=== PATIENT | female | born 1985 | race Caucasian/White ===

== ENCOUNTER 2020-05-08 15:34 | Emergency (ER) | payer BC ==
[~2020-05-08] VITALS: Ht 170.2 cm; Wt 62.7 kg
[2020-05-08 15:36] VITALS: TEMP 98.7
[2020-05-08 16:05] LABS: BASO % 0.3 % (0.0-2.0); EOS % 0.3 % (0-4.0); GRAN # 12.7 (1.4-6.5); GRAN % 83.4 % (42.2-75.2); HEMATOCRIT 38.7 % (37.0-47.0); HEMOGLOBIN 13.3 g/dl (12.5-16.0); LYMPH # 1.4 (1.2-3.4); MEAN CELL VOLUME 91 fl (80.0-100.0); MEAN CORPUSCULAR HEMOGLOBIN 31 pg (27.0-31.0); MEAN CORPUSCULAR HGB CONC 34 g/dl (33.0-37.0); MEAN PLATELET VOLUME 9.4 fl (7.4-10.4); MONO % 6.7 % (1.7-9.3); PLATELET COUNT 325 K/mm3 (130-400); RED BLOOD COUNT 4.27 M/mm3 (4.10-5.30); REDCELL DISTRIBUTION WIDTH-CV 11.4 % (11.5-14.5)
[2020-05-08] MEDS ORDERED: SINGULAIR 110 MG/TAB (16:14)
[2020-05-08] MEDS ORDERED: TENEX PO (16:15)
[2020-05-08 16:23] LABS: ALANINE AMINOTRANSFERASE 12 U/L (4-34); ALBUMIN 4.3 gm/dL (3.5-5.0); ALKALINE PHOSPHATASE 66 U/L (50-136); ANION GAP 7 mmol/L (7-16); AST,SGOT 20 U/L (15-37); BILIRUBIN,TOTAL 0.4 mg/dL (0.0-1.0); BLOOD UREA NITROGEN 15 mg/dL (7-17); CALCIUM 9.2 mg/dL (8.4-10.2); CARBON DIOXIDE 25 mmol/L (22-30); CHLORIDE 103 mmol/L (98-107); CREATININE, serum 0.85 (0.52-1.25); GLUCOSE 100 mg/dL (74-106); POTASSIUM 4.1 mmol/L (3.4-5.0); SODIUM 134 mmol/L (137-145); TOTAL PROTEIN 7.6 gm/dL (6.4-8.2)
[2020-05-08 16:27] LABS: C-REACTIVE PROTEIN < 0.5 mg/dL (0.0-0.9)
[2020-05-08 16:39] LABS: COLLECTION METHOD CLEAN CATCH
[2020-05-08 16:44] LABS: PH 5 (5-8); SQUAMOUS EPITHELIAL 0-2 /hpf; URINE APPEARANCE Clear; URINE BACTERIA Rare /hpf; URINE BILIRUBIN Negative (NEGATIVE); URINE BLOOD 2+ (NEGATIVE); URINE COLOR Yellow; URINE GLUCOSE Negative (NEGATIVE); URINE KETONE Negative (NEGATIVE); URINE LEUKOCYTE ESTERASE Negative (NEGATIVE); URINE NITRATE Negative (NEGATIVE); URINE PROTEIN(semi-quant) Negative (NEGATIVE); URINE RBC 20-50 /hpf; URINE UROBILINOGEN Negative (NEGATIVE)
[2020-05-08] MEDS ORDERED: ZOFRAN ODT4 MG PO (17:14)
[2020-05-08] MEDS ORDERED: NORCO 325 MG-51 TAB PO (17:14)
[2020-05-08 18:54] VITALS: BP 126/80; PULSE 60
== END 2020-05-08 19:02 | disposition home or self-care (01) ==
LOC: COL.ER 15:34
PROVIDERS: Emergency Medicine
DX: N13.2 Hydronephrosis with renal and ureteral calculous obstruction (principal); J45.909 Unspecified asthma, uncomplicated
CPT/HCPCS: J1885; J2060; J2405; J3010; J7030; Q9967

== ENCOUNTER 2020-05-10 10:48 | Day surgery (SDC) | payer BC ==
[~2020-05-10] VITALS: Ht 170.2 cm; Wt 65.0 kg
[2020-05-10] VITALS (7 sets, daily range): BP systolic 102–113; BP diastolic 50–63; PULSE 65–84; TEMP 98.1–98.5
[~2020-05-10 10:48] MED LIST: NORCO 325 MG-51 TAB PO; SINGULAIR 110 MG/TAB; TENEX PO; ZOFRAN ODT4 MG PO
[2020-05-10] MEDS ORDERED: SINGULAIR 110 MG/TAB PO (12:25)
[2020-05-10] MEDS ORDERED: LEVAQUIN 5500 MG/TA1 PO (12:26)
[2020-05-10] MEDS ORDERED: VENTOLIN0.09 MG IH (12:26)
[2020-05-10] MEDS ORDERED: FLOVENT 110MCG7.9 GM IH (12:27)
--- NOTE | 2020-05-10 15:45 | NUR ---
Patient returns to room 4 per cart from PACU accompanied by Noa POWELL and arouses to verbal stimuli. Temp 97.9 and room air sats 98%. Denies pain or nausea. IV fluids and site is free of redness. Siderails up x2 and call light in reach. Allowed to rest.
--- NOTE | 2020-05-10 16:00 | NUR ---
Room air sats 96%. Drinking water. Denies pain or nausea.
--- NOTE | 2020-05-10 16:15 | NUR ---
Tolerates water. Offers no complaints of pain.
--- NOTE | 2020-05-10 16:45 | NUR ---
Assisted up to the bathroom and is able to void. Returns to room and IV discontinued. Patient dresses self.
--- NOTE | 2020-05-10 17:10 | NUR ---
Patient dismissal instructions signed and voices understanding of these. Instructed to force fluids. Provided office number for questions and concerns.
--- NOTE | 2020-05-10 17:14 | NUR ---
Dismissed to home driven by father and taken to the emergency room door per wheelchair and assisted into car with instructions in hand.
== END 2020-05-10 17:14 | disposition home or self-care (01) ==
LOC: SDCO 10:48
DX: N20.1 Calculus of ureter (principal); J45.909 Unspecified asthma, uncomplicated; Z88.0 Allergy status to penicillin; Z88.1 Allergy status to other antibiotic agents; Z88.2 Allergy status to sulfonamides; Z80.42 Family history of malignant neoplasm of prostate
CPT/HCPCS: C1769; C2617; J0690; J1100; J1885; J2250; J2405; J2704; J3010; J7120

== ENCOUNTER 2020-07-16 09:46 | Emergency (ER) | payer BC ==
[~2020-07-16] VITALS: Ht 170.2 cm; Wt 63.6 kg
[~2020-07-16 09:46] MED LIST changes: +FLOVENT 110MCG7.9 GM IH; +LEVAQUIN 5500 MG/TA1 PO; +SINGULAIR 110 MG/TAB PO; +VENTOLIN0.09 MG IH
[2020-07-16 11:16] VITALS: TEMP 98.2
[2020-07-16] MEDS ORDERED: ZOFRAN ODT4 MG PO (11:53)
[2020-07-16 12:30] VITALS: BP 120/75; PULSE 82
== END 2020-07-16 12:05 | disposition home or self-care (01) ==
LOC: COL.ER 09:46
DX: J45.909 Unspecified asthma, uncomplicated (principal); J06.9 Acute upper respiratory infection, unspecified; Z20.828 Contact with and (suspected) exposure to other viral communicable diseases
CPT/HCPCS: J8540

== ENCOUNTER → 2022-06-13 | Outpatient (CLI) | payer BC | LOC: COL.RAD 11:32 | DX: Z87.442 Personal history of urinary calculi (principal) ==